=== PATIENT | female | born 1980 | race Caucasian/White ===

== ENCOUNTER 2017-02-03 06:46 | Observation (INO) | payer BC, OTHER ==
[~2017-02-03] VITALS: Ht 157.5 cm; Wt 81.3 kg
[2017-02-03] MEDS ORDERED: SODIUM CHLORIDE 0.9% 1,000 ML IV SCH (07:12)
[2017-02-03 07:15] VITALS: BP 120/83
[2017-02-03] MEDS ORDERED: DESO1TAB35 PO (07:25)
[2017-02-03] MEDS ORDERED: CITA20TA9 PO (07:25)
[2017-02-03] MEDS ORDERED: TIZA2CAP PO (07:25)
[2017-02-03] MEDS ORDERED: MELO15TA24 PO (07:25)
[2017-02-03] MEDS ORDERED: METO25TA35 PO (07:26)
[2017-02-03] MEDS ORDERED: FENTANYL PF 100 MCG/2ML ONE ×3 (07:39→09:30)
[2017-02-03] MEDS ORDERED: ISOPROTERENOL 0.2MG/ML, 5ML ONE (07:39)
[2017-02-03] MEDS ORDERED: MIDAZOLAM 1 MG/ML, 5ML ONE ×2 (07:39→09:27)
[2017-02-03] MEDS ORDERED: ADENOSINE 6 MG/2 ML ONE (07:39)
[2017-02-03] MEDS ORDERED: LIDOCAINE 2%, 20ML ONE (07:39)
[2017-02-03] MEDS ORDERED: HEPARIN 1,000 UNITS/ML, 10ML ONE ×2 (09:03→09:54)
[2017-02-03] MEDS ORDERED: PROTAMINE SULFATE 10 MG/ML, 5ML ONE (10:24)
[2017-02-03] MEDS ORDERED: MELOXICAM 15 MG TABLET PO PRN (10:30)
[2017-02-03] MEDS ORDERED: TIZANIDINE 2MG TABLET PO PRN (10:30)
[2017-02-03 11:18] VITALS: BP 96/65
[2017-02-03] MEDS ORDERED: ACETAMINOPHEN 325 MG TABLET PO PRN (13:00)
[2017-02-03 13:40] VITALS: BP 110/67
[2017-02-03] MEDS: HYDROcodone/APAP 5/325 TABLET PO PRN ×2 (15:41→20:58)
[2017-02-03 20:02] VITALS: BP 92/52
[2017-02-04] MEDS: CITALOPRAM 20 MG TABLET PO SCH ×2 (00:14→09:00)
[2017-02-04 01:06] VITALS: BP 94/60
[2017-02-04] MEDS: HYDROcodone/APAP 5/325 TABLET PO PRN (01:10)
[2017-02-04] MEDS ORDERED: ASPIRIN 325 MG TABLET EC PO SCH (06:00)
[2017-02-04 08:31] VITALS: BP 90/67
[2017-02-04] MEDS ORDERED: CITALOPRAM 20 MG TABLET PO SCH (09:00)
[2017-02-04] MEDS ORDERED: DESOGESTREL ETHINYL ESTRADIOL PO SCH (09:00)
[2017-02-04] MEDS ORDERED: MAGNESIUM SULFATE PMX 2GM/50ML 50 ML IV ONE (10:00)
[2017-02-04] MEDS ORDERED: POTASSIUM CHLORIDE 30 MEQ in SODIUM CHLORIDE 0.45% 1,000 ML IV SCH (10:00)
[2017-02-04 10:37] LABS: BLOOD UREA NITROGEN 10 mg/dL (7-18)
[2017-02-04 15:00] VITALS: BP 98/67
== END 2017-02-04 14:50 | disposition home or self-care (01) ==
LOC: CACL 06:46 → ORIP 10:21 → 5SO 11:20
PROVIDERS: ADMIT Internal Medicine Cardiovascular Disease; ATTEND Internal Medicine Cardiovascular Disease
DX: I47.1 Supraventricular tachycardia (principal); I45.6 Pre-excitation syndrome; I44.1 Atrioventricular block, second degree; Z72.89 Other problems related to lifestyle
CPT/HCPCS: 36415; 80048; 83735; 84703; 85347; 93005; 93462; 93613; 93621; 93623; 93653; 93662; 96365; 96366; 99156; 99157; C1730; C1759; C1766; C1893; C1894; C2630; G0378; J1644; J2250; J2720; J3010; J3475; J3480; J3490; J0153